=== PATIENT | male | born 1940 | race Caucasian/White ===

== ENCOUNTER 2022-09-21 10:38 | Day surgery (SDC) | payer MEDICARE, BC ==
[~2022-09-21] VITALS: Ht 182.9 cm; Wt 111.4 kg
[2022-09-21 10:56] VITALS: BP 104/69
[2022-09-21] MEDS ORDERED: LIDOcaine Viscous 15ml cup ONE (11:10)
[2022-09-21] MEDS ORDERED: MIDAZolam 1 MG/ML 5ML VIAL ONE (11:10)
[2022-09-21] MEDS ORDERED: fentaNYL/PF 50MCG/1 ML 2ML syringe ONE (11:10)
[2022-09-21] MEDS ORDERED: OMEP40CA21 PO (11:34)
[2022-09-21] MEDS ORDERED: WARF-55 PO (11:34)
[2022-09-21 12:40] VITALS: BP 119/80
[2022-09-21 12:49] VITALS: BP 120/81
[2022-09-21 12:59] VITALS: BP 117/66
[2022-09-21 13:09] VITALS: BP 121/66
[2022-09-21 13:19] VITALS: BP 126/77
== END 2022-09-21 13:40 | disposition home or self-care (01) ==
LOC: GI LAB 10:38
PROVIDERS: ATTEND Internal Medicine Gastroenterology
DX: K44.9 Diaphragmatic hernia without obstruction or gangrene (principal); K22.89 Other specified disease of esophagus; K31.89 Other diseases of stomach and duodenum
CPT/HCPCS: 43239; J2250; J3010; J7030; Z7512; 88305; 99152; A4620